=== PATIENT | female | born 1950 | race Caucasian/White ===

== ENCOUNTER → 2017-03-02 | Outpatient (CLI) | payer MEDICARE, OTHER ==
[2017-03-02 11:21] LABS: FREE T4 1.43 NG/DL (0.76-1.46)
== END ==
LOC: M LAB 09:48
PROVIDERS: ATTEND Family Medicine
DX: E03.9 Hypothyroidism, unspecified (principal); E11.9 Type 2 diabetes mellitus without complications; E78.2 Mixed hyperlipidemia

== ENCOUNTER → 2017-08-17 | Outpatient (REF) | payer MEDICARE, OTHER ==
[2017-08-17 11:30] LABS: ALBUMIN/GLOBULIN RATIO 1.48 (1.00-1.93); ALKALINE PHOSPHATASE 55 U/L (45-117); ALT/SGPT 20 U/L (12-78); ANION GAP 8 MEQ/L (8-16); AST/SGOT 10 U/L (15-37); BILIRUBIN,TOTAL 0.9 MG/DL (0.2-1.0); BLOOD UREA NITROGEN 20 MG/DL (7-18); CALCIUM LEVEL 9.3 MG/DL (8.8-10.2); CARBON DIOXIDE LEVEL 26 MEQ/L (21-32); CHLORIDE LEVEL 106 MEQ/L (98-107); CHOLESTEROL LEVEL 210 MG/DL (<200); CREATININE FOR GFR 0.73 MG/DL (0.55-1.02); GLOMERULAR FILTRATION RATE > 60.0 (>45); GLUCOSE, FASTING 113 MG/DL (80-110); POTASSIUM SERUM 4.5 MEQ/L (3.5-5.1); SODIUM LEVEL 140 MEQ/L (136-145); TOTAL PROTEIN 6.7 GM/DL (6.4-8.2); TRIGLYCERIDES LEVEL 92 MG/DL (<150)
== END ==
LOC: M SFHCPLAZ 07:51
PROVIDERS: ATTEND Family Medicine
DX: E78.2 Mixed hyperlipidemia (principal); E03.9 Hypothyroidism, unspecified; Z79.899 Other long term (current) drug therapy

== ENCOUNTER → 2018-02-07 | Outpatient (REF) | payer MEDICARE, OTHER ==
[2018-02-07 12:37] LABS: ALBUMIN 4.1 GM/DL (3.2-5.2); ALBUMIN/GLOBULIN RATIO 1.41 (1.00-1.93); ALKALINE PHOSPHATASE 58 U/L (45-117); ALT/SGPT 18 U/L (12-78); ANION GAP 9 MEQ/L (8-16); AST/SGOT 8 U/L (7-37); BLOOD UREA NITROGEN 16 MG/DL (7-18); CARBON DIOXIDE LEVEL 27 MEQ/L (21-32); CHLORIDE LEVEL 106 MEQ/L (98-107); CHOLESTEROL LEVEL 173 MG/DL (<200); CHOLESTEROL RISK RATIO 3.931 (<5); CREATININE FOR GFR 0.94 MG/DL (0.55-1.30); FREE T4 1.39 NG/DL (0.76-1.46); GLOMERULAR FILTRATION RATE > 60.0 (>39); GLUCOSE, FASTING 120 MG/DL (70-100); HDL CHOLESTEROL 44 MG/DL (>40); LDL CHOLESTEROL 99.8 MG/DL (<100); NON-HDL-C 129 MG/DL; POTASSIUM SERUM 4.2 MEQ/L (3.5-5.1); SODIUM LEVEL 142 MEQ/L (136-145); TRIGLYCERIDES LEVEL 146 MG/DL (<150)
[2018-02-07 12:38] LABS: TOTAL 25(OH) VITAMIN D 49.2 NG/ML (30.0-100.0)
[2018-02-07 12:39] LABS: PTH INTACT 57.1 PG/ML (18.5-88.0)
[2018-02-07 13:08] LABS: ESTIMATED AVERAGE GLUCOSE 140 MG/DL (60-110); HEMOGLOBIN A1c 6.5 %
[2018-02-08 14:15] LABS: INSULIN LEVEL 10.3 uIU/mL (2.6-24.9)
== END ==
LOC: M SFHCPLAZ 08:06
DX: E55.9 Vitamin D deficiency, unspecified (principal); E03.9 Hypothyroidism, unspecified; E78.2 Mixed hyperlipidemia; E11.8 Type 2 diabetes mellitus with unspecified complications
CPT/HCPCS: 83525

== ENCOUNTER → 2018-08-10 | Outpatient (REF) | payer MEDICARE, OTHER ==
[2018-08-10 12:49] LABS: APPEARANCE, URINE CLEAR (CLEAR); BACTERIA, URINE AUTO 1+ (NEGATIVE); BILIRUBIN, URINE AUTO NEGATIVE (NEGATIVE); BLOOD, URINE BLOOD NEGATIVE (NEGATIVE); COLOR, URINE STRAW (YELLOW); GLUCOSE, URINE (UA) AUTO NEGATIVE (NEGATIVE); KETONE, URINE AUTO NEGATIVE (NEGATIVE); LEUKOCYTE ESTERASE, URINE AUTO NEGATIVE (NEGATIVE); MUCUS, URINE SMALL (NEGATIVE); NITRITE, URINE AUTO NEGATIVE (NEGATIVE); PROTEIN, URINE AUTO NEGATIVE (NEGATIVE); RBC, URINE AUTO 2 /HPF (0-3); SPECIFIC GRAVITY URINE AUTO 1.008 (1.002-1.035); SQUAMOUS EPITHELIAL CELL UR AU 1 /HPF (0-6); UROBILINOGEN, URINE AUTO 0.2 mg/dL (0.0-2.0); WBC, URINE AUTO 1 /HPF (0-3)
[2018-08-10 14:49] LABS: ALBUMIN 4.2 GM/DL (3.2-5.2); ALKALINE PHOSPHATASE 58 U/L (45-117); ALT/SGPT 23 U/L (12-78); ANION GAP 10 MEQ/L (8-16); AST/SGOT 13 U/L (7-37); BILIRUBIN,TOTAL 0.8 MG/DL (0.2-1.0); BLOOD UREA NITROGEN 14 MG/DL (7-18); CARBON DIOXIDE LEVEL 25 MEQ/L (21-32); CHLORIDE LEVEL 106 MEQ/L (98-107); CREATININE FOR GFR 0.82 MG/DL (0.55-1.30); FREE T4 1.37 NG/DL (0.76-1.46); GLOMERULAR FILTRATION RATE > 60.0 (>39); GLUCOSE, FASTING 104 MG/DL (70-100); POTASSIUM SERUM 4.4 MEQ/L (3.5-5.1); SODIUM LEVEL 141 MEQ/L (136-145)
[2018-08-10 14:55] LABS: ESTIMATED AVERAGE GLUCOSE 128 MG/DL (60-110); HEMOGLOBIN A1c 6.1 %
[2018-08-10 15:26] LABS: CREATININE, URINE 31.2 MG/DL; MALB URINE SIEMENS 18.9 MG/L
[2018-08-10 15:30] LABS: MAU/CREAT RATIO 60.6 MCG/MG (0.0-30.0)
== END ==
LOC: M SFHCPLAZ 08:42
DX: E11.8 Type 2 diabetes mellitus with unspecified complications (principal); E03.9 Hypothyroidism, unspecified
CPT/HCPCS: 84443

== ENCOUNTER → 2019-01-24 | Outpatient (REF) | payer MEDICARE, OTHER ==
[2019-01-24 10:25] LABS: AMORPHOUS SEDIMENT SMALL (NEGATIVE); APPEARANCE, URINE CLEAR (CLEAR); BACTERIA, URINE AUTO NEGATIVE (NEGATIVE); BILIRUBIN, URINE AUTO NEGATIVE (NEGATIVE); BLOOD, URINE BLOOD NEGATIVE (NEGATIVE); COLOR, URINE YELLOW (YELLOW); GLUCOSE, URINE (UA) AUTO NEGATIVE (NEGATIVE); KETONE, URINE AUTO NEGATIVE (NEGATIVE); LEUKOCYTE ESTERASE, URINE AUTO NEGATIVE (NEGATIVE); MUCUS, URINE SMALL (NEGATIVE); NITRITE, URINE AUTO NEGATIVE (NEGATIVE); PROTEIN, URINE AUTO NEGATIVE (NEGATIVE); RBC, URINE AUTO 0 /HPF (0-3); SPECIFIC GRAVITY URINE AUTO 1.012 (1.002-1.035); SQUAMOUS EPITHELIAL CELL UR AU 1 /HPF (0-6); UROBILINOGEN, URINE AUTO 0.2 mg/dL (0.0-2.0); WBC, URINE AUTO 1 /HPF (0-3)
[2019-01-24 10:49] LABS: HEMOGLOBIN A1c 6.8 %
[2019-01-24 10:53] LABS: ALT/SGPT 23 U/L (12-78); BILIRUBIN,TOTAL 0.9 MG/DL (0.2-1.0); BLOOD UREA NITROGEN 14 MG/DL (7-18); C REACTIVE PROTEIN QUANTITATIV < 0.30 MG/DL (0.00-0.30); CALCIUM LEVEL 8.8 MG/DL (8.8-10.2); CARBON DIOXIDE LEVEL 27 MEQ/L (21-32); CHLORIDE LEVEL 105 MEQ/L (98-107); CHOLESTEROL LEVEL 173 MG/DL (<200); CHOLESTEROL RISK RATIO 4.023 (<5); CPK CREATINE PHOSPHOKINASE 105 U/L (26-192); GLOMERULAR FILTRATION RATE > 60.0 (>39); GLUCOSE, FASTING 137 MG/DL (70-100); HDL CHOLESTEROL 43 MG/DL (>40); LDL CHOLESTEROL 99 MG/DL (<100); NON-HDL-C 130 MG/DL; POTASSIUM SERUM 4.5 MEQ/L (3.5-5.1); SODIUM LEVEL 141 MEQ/L (136-145); TOTAL PROTEIN 6.6 GM/DL (6.4-8.2); TRIGLYCERIDES LEVEL 155 MG/DL (<150)
[2019-01-24 10:59] LABS: PTH INTACT 70.8 PG/ML (18.5-88.0); TOTAL 25(OH) VITAMIN D 33.6 NG/ML (30.0-100.0)
[2019-01-24 11:07] LABS: CREATININE, URINE 74.8 MG/DL; MALB URINE SIEMENS 13.1 MG/L; MAU/CREAT RATIO 17.5 MCG/MG (0.0-30.0)
== END ==
LOC: M SFHCPLAZ 08:10
PROVIDERS: ATTEND Family Medicine
DX: E78.2 Mixed hyperlipidemia (principal); E11.8 Type 2 diabetes mellitus with unspecified complications; E55.9 Vitamin D deficiency, unspecified

== ENCOUNTER → 2019-07-06 | Outpatient (REF) | payer MEDICARE, OTHER ==
[2019-07-06 10:10] LABS: ALBUMIN 3.8 GM/DL (3.2-5.2); ALT/SGPT 23 U/L (12-78); BILIRUBIN,TOTAL 1.1 MG/DL (0.2-1.0); BLOOD UREA NITROGEN 17 MG/DL (7-18); CALCIUM LEVEL 8.9 MG/DL (8.8-10.2); CARBON DIOXIDE LEVEL 28 MEQ/L (21-32); CHLORIDE LEVEL 108 MEQ/L (98-107); CREATININE FOR GFR 0.88 MG/DL (0.55-1.30); FREE T4 1.44 NG/DL (0.76-1.46); GLOMERULAR FILTRATION RATE > 60.0 (>39); GLUCOSE, FASTING 121 MG/DL (70-100); POTASSIUM SERUM 4.5 MEQ/L (3.5-5.1); SODIUM LEVEL 142 MEQ/L (136-145); THYROID STIMULATING HORMONE 0.993 uIU/ML (0.358-3.740); TOTAL PROTEIN 6.4 GM/DL (6.4-8.2)
[2019-07-06 10:11] LABS: TOTAL 25(OH) VITAMIN D 31.4 NG/ML (30.0-100.0)
[2019-07-06 10:12] LABS: HEMOGLOBIN A1c 7.3 %; PTH INTACT 65.8 PG/ML (18.5-88.0)
== END ==
LOC: M SFHCPLAZ 08:01
PROVIDERS: ATTEND Family Medicine
DX: E03.9 Hypothyroidism, unspecified (principal); E11.8 Type 2 diabetes mellitus with unspecified complications; E55.9 Vitamin D deficiency, unspecified

== ENCOUNTER → 2020-01-16 | Outpatient (CLI) | payer MEDICARE, OTHER ==
[2020-01-16 12:24] LABS: BASO # 0.1 10^3/uL (0.0-0.2); BASO % 0.9 % (0.0-1.0); EOS # 0.2 10^3/uL (0.0-0.5); HEMATOCRIT 40.1 % (36.0-47.0); HEMOGLOBIN 13.2 g/dl (12.0-15.5); LYMPH # 1.5 10^3/uL (1.5-5.0); LYMPH % 24.1 % (24.0-44.0); MEAN CORPUSCULAR HEMOGLOBIN 30.3 pg (27.0-33.0); MEAN CORPUSCULAR HGB CONC 32.9 g/dl (32.0-36.5); MONO # 0.5 10^3/uL (0.0-0.8); MONO % 7.4 % (0.0-5.0); NEUTROPHILS # 4.1 10^3/uL (1.5-8.5); NEUTROPHILS % 64.3 % (36.0-66.0); PLATELET COUNT, AUTOMATED 210 10^3/uL (150-450); RED BLOOD COUNT 4.36 10^6/uL (4.00-5.40); WHITE BLOOD COUNT 6.4 10^3/uL (4.0-10.0)
[2020-01-16 12:30] LABS: APPEARANCE, URINE HAZY (CLEAR); BACTERIA, URINE AUTO NEGATIVE (NEGATIVE); BILIRUBIN, URINE AUTO NEGATIVE (NEGATIVE); BLOOD, URINE BLOOD NEGATIVE (NEGATIVE); COLOR, URINE YELLOW (YELLOW); GLUCOSE, URINE (UA) AUTO NEGATIVE (NEGATIVE); KETONE, URINE AUTO NEGATIVE (NEGATIVE); LEUKOCYTE ESTERASE, URINE AUTO NEGATIVE (NEGATIVE); NITRITE, URINE AUTO NEGATIVE (NEGATIVE); PROTEIN, URINE AUTO NEGATIVE (NEGATIVE); RBC, URINE AUTO 2 /HPF (0-3); SPECIFIC GRAVITY URINE AUTO 1.017 (1.002-1.035); SQUAMOUS EPITHELIAL CELL UR AU 0 /HPF (0-6); UROBILINOGEN, URINE AUTO 0.2 mg/dL (0.0-2.0); WBC, URINE AUTO 1 /HPF (0-3)
[2020-01-16 12:49] LABS: ALBUMIN 4.1 GM/DL (3.2-5.2); ALT/SGPT 19 U/L (12-78); BILIRUBIN,TOTAL 1.4 MG/DL (0.2-1.0); BLOOD UREA NITROGEN 18 MG/DL (7-18); CALCIUM LEVEL 8.9 MG/DL (8.8-10.2); CARBON DIOXIDE LEVEL 25 MEQ/L (21-32); CHLORIDE LEVEL 108 MEQ/L (98-107); CHOLESTEROL LEVEL 208 MG/DL (<200); CHOLESTEROL RISK RATIO 5.333 (<5); CREATININE FOR GFR 0.91 MG/DL (0.55-1.30); GLOMERULAR FILTRATION RATE > 60.0 (>39); GLUCOSE, FASTING 124 MG/DL (70-100); HDL CHOLESTEROL 39 MG/DL (>40); LDL CHOLESTEROL 139 MG/DL (<100); NON-HDL-C 169 MG/DL; POTASSIUM SERUM 4.2 MEQ/L (3.5-5.1); SODIUM LEVEL 140 MEQ/L (136-145); TRIGLYCERIDES LEVEL 152 MG/DL (<150)
[2020-01-16 12:55] LABS: MALB URINE SIEMENS 24.5 MG/L; MAU/CREAT RATIO 19.1 MCG/MG (0.0-30.0)
== END ==
LOC: M PLALAB 08:36
PROVIDERS: ATTEND Family Medicine
DX: E78.2 Mixed hyperlipidemia (principal); E11.8 Type 2 diabetes mellitus with unspecified complications

== ENCOUNTER → 2020-01-21 | Outpatient (CLI) | payer MEDICARE, OTHER ==
--- NOTE | 2020-01-21 10:12 | REPPI ---
RIGHT ANKLE, TWO VIEWS: Two views of the right ankle are performed. There is no fracture or dislocation. The ankle mortise is anatomic. There is mild inferior calcaneal spurring. There are calcifications in the soft tissues of the distal lower leg probably representing phleboliths. IMPRESSION: Mild inferior calcaneal spurring. Electronically Signed by Iván Mckeon MD 01/21/2020 01:24 P
--- NOTE | 2020-01-21 10:15 | REPPI ---
RIGHT LOWER LEG: AP and lateral views of the right lower leg performed. No fracture or dislocation is seen. There appear to be scattered phleboliths in the soft tissues of the lower leg. There are mild degenerative changes of the knee joint with mild diffuse joint space narrowing and subchondral sclerosis and spurring. IMPRESSION: Mild degenerative changes at the knee. No other significant finding. Electronically Signed by Iván Mckeon MD 01/21/2020 01:24 P
--- NOTE | 2020-01-21 10:17 | REPPI ---
RIGHT FOOT, TWO VIEWS: AP and lateral views of the right foot performed and demonstrate no fracture or dislocation. There is mild inferior calcaneal spurring. There is fairly severe joint space narrowing at the 1st metatarsophalangeal joint. There is moderate subchondral sclerosis with mild spurring at the joint as well. There is mild hallux valgus deformity. IMPRESSION: Degenerative joint disease 1st metatarsophalangeal joint. Mild inferior calcaneal spurring. Electronically Signed by Iván Mckeon MD 01/21/2020 01:24 P
== END ==
LOC: M PLAIMG 09:20
PROVIDERS: ATTEND Family Medicine
DX: M77.31 Calcaneal spur, right foot (principal); M19.071 Primary osteoarthritis, right ankle and foot; M17.11 Unilateral primary osteoarthritis, right knee; I87.2 Venous insufficiency (chronic) (peripheral)
CPT/HCPCS: 73590; 73600; 73620; G0463

== ENCOUNTER → 2020-01-29 | Outpatient (CLI) | payer MEDICARE, OTHER ==
--- NOTE | 2020-01-29 12:21 | REP ---
Bilateral lower extremity deep vein duplex ultrasound: The deep veins demonstrate normal compression, normal Doppler color flow and normal Doppler waveforms with respiration augmentation from the popliteal veins to the common femoral veins bilaterally. Impression: There is no deep vein thrombus in the right or left lower extremities. Lower Extremity Venous Reflux: Positive reflux is greater than 0.5 seconds. Right Reflux Left Reflux CFV Reflux no no Ant. Acc. GSV Present yes no Reflux no no Greater saph/fem junction 8.7 mm no 5.3 mm no Greater saph vein mid thigh 5.9 mm no 4.2 mm no Greater saph vein at knee 2.3 mm no 1.6 mm no SFV PROX no no SFV MID no no SFV DISTAL yes no POPLITEAL VEIN no no LSV 3.5 mm no 3.8 mm no The the patient was unable to continue standing. The patient was having difficulty standing and one spot. There is no reflux except in the right distal SFV. Additionally, on the left a posterior accessory GSV was identified. There was no reflux. Electronically Signed by Iván Cavazos MD 01/29/2020 12:12 P
== END ==
LOC: M RAD 10:10
PROVIDERS: ATTEND Family Medicine
DX: I87.2 Venous insufficiency (chronic) (peripheral) (principal); Q27.9 Congenital malformation of peripheral vascular system, unspecified

== ENCOUNTER → 2020-08-29 | Outpatient (REF) | payer MEDICARE, OTHER ==
[2020-08-29 10:55] LABS: ALBUMIN 3.8 GM/DL (3.2-5.2); ALT/SGPT 20 U/L (12-78); BILIRUBIN,TOTAL 1.2 MG/DL (0.2-1.0); BLOOD UREA NITROGEN 18 MG/DL (7-18); CALCIUM LEVEL 8.8 MG/DL (8.8-10.2); CARBON DIOXIDE LEVEL 27 MEQ/L (21-32); CHLORIDE LEVEL 105 MEQ/L (98-107); CHOLESTEROL LEVEL 170 MG/DL (<200); CPK CREATINE PHOSPHOKINASE 95 U/L (26-192); CREATININE FOR GFR 0.84 MG/DL (0.55-1.30); FREE T4 1.47 NG/DL (0.76-1.46); GLOMERULAR FILTRATION RATE > 60.0 (>39); GLUCOSE, FASTING 122 MG/DL (70-100); HDL CHOLESTEROL 50 MG/DL (>40); LDL CHOLESTEROL 90 MG/DL (<100); NON-HDL-C 120 MG/DL; POTASSIUM SERUM 4.7 MEQ/L (3.5-5.1); SODIUM LEVEL 140 MEQ/L (136-145); TOTAL PROTEIN 6.9 GM/DL (6.4-8.2); TRIGLYCERIDES LEVEL 152 MG/DL (<150)
[2020-08-29 10:58] LABS: HEMOGLOBIN A1c 6.2 %; PTH INTACT 56.9 PG/ML (18.5-88.0); TOTAL 25(OH) VITAMIN D 50.4 NG/ML (30.0-100.0)
== END ==
LOC: M PLALAB 08:10
PROVIDERS: ATTEND Family Medicine
DX: E78.2 Mixed hyperlipidemia (principal); I10 Essential (primary) hypertension; E03.9 Hypothyroidism, unspecified; E11.8 Type 2 diabetes mellitus with unspecified complications; E55.9 Vitamin D deficiency, unspecified; Z79.899 Other long term (current) drug therapy

== ENCOUNTER → 2021-02-06 | Outpatient (REF) | payer MEDICARE, OTHER ==
[2021-02-06 10:17] LABS: APPEARANCE, URINE CLEAR (CLEAR); BACTERIA, URINE AUTO 1+ (NEGATIVE); BILIRUBIN, URINE AUTO NEGATIVE (NEGATIVE); BLOOD, URINE BLOOD 1+ (NEGATIVE); COLOR, URINE YELLOW (YELLOW); GLUCOSE, URINE (UA) AUTO NEGATIVE (NEGATIVE); KETONE, URINE AUTO NEGATIVE (NEGATIVE); LEUKOCYTE ESTERASE, URINE AUTO NEGATIVE (NEGATIVE); MUCUS, URINE SMALL (NEGATIVE); NITRITE, URINE AUTO NEGATIVE (NEGATIVE); PROTEIN, URINE AUTO NEGATIVE (NEGATIVE); RBC, URINE AUTO 0 /HPF (0-3); SPECIFIC GRAVITY URINE AUTO 1.013 (1.002-1.035); SQUAMOUS EPITHELIAL CELL UR AU 0 /HPF (0-6); UROBILINOGEN, URINE AUTO 0.2 mg/dL (0.0-2.0); WBC, URINE AUTO 2 /HPF (0-3)
[2021-02-06 10:33] LABS: HEMOGLOBIN A1c 6.5 %
[2021-02-06 10:47] LABS: ALBUMIN 4.2 GM/DL (3.2-5.2); ALT/SGPT 22 U/L (12-78); BILIRUBIN,TOTAL 1.3 MG/DL (0.2-1.0); BLOOD UREA NITROGEN 17 MG/DL (7-18); CALCIUM LEVEL 9.6 MG/DL (8.8-10.2); CARBON DIOXIDE LEVEL 28 MEQ/L (21-32); CHLORIDE LEVEL 106 MEQ/L (98-107); CREATININE FOR GFR 0.92 MG/DL (0.55-1.30); FREE T4 1.34 NG/DL (0.76-1.46); GLOMERULAR FILTRATION RATE > 60.0 (>39); GLUCOSE, FASTING 130 MG/DL (70-100); POTASSIUM SERUM 4.5 MEQ/L (3.5-5.1); SODIUM LEVEL 140 MEQ/L (136-145); TOTAL PROTEIN 7.1 GM/DL (6.4-8.2)
[2021-02-06 10:54] LABS: CREATININE, URINE 86.6 MG/DL; MAU/CREAT RATIO 9.2 MCG/MG (0.0-30.0)
== END ==
LOC: M PLALAB 08:46
PROVIDERS: ATTEND Family Medicine
DX: E11.8 Type 2 diabetes mellitus with unspecified complications (principal); E03.9 Hypothyroidism, unspecified

== ENCOUNTER → 2021-08-03 | Outpatient (CLI) | payer MEDICARE, OTHER ==
[2021-08-03 10:59] LABS: BASO # 0.1 10^3/uL (0.0-0.2); BASO % 1.3 % (0.0-1.0); EOS # 0.5 10^3/uL (0.0-0.5); HEMATOCRIT 40.7 % (36.0-47.0); HEMOGLOBIN 13.2 g/dl (12.0-15.5); LYMPH # 1.2 10^3/uL (1.5-5.0); LYMPH % 19.2 % (24.0-44.0); MEAN CORPUSCULAR HEMOGLOBIN 29.4 pg (27.0-33.0); MEAN CORPUSCULAR HGB CONC 32.4 g/dl (32.0-36.5); MEAN CORPUSCULAR VOLUME 90.6 fl (80.0-96.0); MONO # 0.4 10^3/uL (0.0-0.8); MONO % 7.3 % (2.0-8.0); NEUTROPHILS # 3.8 10^3/uL (1.5-8.5); NEUTROPHILS % 62.9 % (36.0-66.0); PLATELET COUNT, AUTOMATED 192 10^3/uL (150-450); RED BLOOD COUNT 4.49 10^6/uL (4.00-5.40)
[2021-08-03 12:02] LABS: ALBUMIN 3.8 GM/DL (3.2-5.2); BILIRUBIN,TOTAL 1.2 MG/DL (0.2-1.0); CALCIUM LEVEL 9.2 MG/DL (8.8-10.2); CHOLESTEROL RISK RATIO 3.12 (<5); CREATININE FOR GFR 1.02 MG/DL (0.55-1.30); FREE T4 1.47 NG/DL (0.76-1.46); GLOMERULAR FILTRATION RATE 56.6 (>39); POTASSIUM SERUM 4.5 MEQ/L (3.5-5.1); THYROID STIMULATING HORMONE 0.792 uIU/ML (0.358-3.740); TOTAL PROTEIN 6.9 GM/DL (6.4-8.2)
[2021-08-03 18:59] LABS: HEMOGLOBIN A1c 6.4 %
== END ==
LOC: M PLALAB 08:10
PROVIDERS: ATTEND Family Medicine
DX: E03.9 Hypothyroidism, unspecified (principal); E11.8 Type 2 diabetes mellitus with unspecified complications; E78.2 Mixed hyperlipidemia; I10 Essential (primary) hypertension

== ENCOUNTER → 2022-01-01 | Outpatient (CLI) | payer MEDICARE, OTHER ==
[2022-01-01 10:44] LABS: BASO # 0.1 10^3/uL (0.0-0.2); BASO % 0.7 % (0.0-1.0); EOS # 0.3 10^3/uL (0.0-0.5); HEMATOCRIT 41.1 % (36.0-47.0); HEMOGLOBIN 13.5 g/dl (12.0-15.5); LYMPH # 1.7 10^3/uL (1.5-5.0); LYMPH % 24.4 % (24.0-44.0); MEAN CORPUSCULAR HEMOGLOBIN 29.8 pg (27.0-33.0); MEAN CORPUSCULAR HGB CONC 32.8 g/dl (32.0-36.5); MEAN CORPUSCULAR VOLUME 90.7 fl (80.0-96.0); MONO # 0.5 10^3/uL (0.0-0.8); MONO % 7.5 % (2.0-8.0); NEUTROPHILS # 4.4 10^3/uL (1.5-8.5); NEUTROPHILS % 63.1 % (36.0-66.0); PLATELET COUNT, AUTOMATED 179 10^3/uL (150-450); RED BLOOD COUNT 4.53 10^6/uL (4.00-5.40); WHITE BLOOD COUNT 6.9 10^3/uL (4.0-10.0)
[2022-01-01 11:38] LABS: ALBUMIN 4.2 GM/DL (3.2-5.2); BILIRUBIN,TOTAL 1.2 MG/DL (0.2-1.0); CALCIUM LEVEL 9.5 MG/DL (8.8-10.2); CREATININE FOR GFR 0.97 MG/DL (0.55-1.30); FREE T4 1.56 NG/DL (0.76-1.46); GLOMERULAR FILTRATION RATE 59.9 (>39); POTASSIUM SERUM 4.7 MEQ/L (3.5-5.1); PTH INTACT 48.3 PG/ML (18.5-88.0); THYROID STIMULATING HORMONE 1.13 uIU/ML (0.358-3.740); TOTAL 25(OH) VITAMIN D 70.6 NG/ML (30.0-100.0)
[2022-01-01 12:18] LABS: HEMOGLOBIN A1c 6.5 %
== END ==
LOC: M PLALAB 07:50
PROVIDERS: ATTEND Family Medicine
DX: E55.9 Vitamin D deficiency, unspecified (principal); E11.8 Type 2 diabetes mellitus with unspecified complications; I10 Essential (primary) hypertension

== ENCOUNTER → 2022-06-04 | Outpatient (CLI) | payer MEDICARE, OTHER ==
[2022-06-04 10:37] LABS: ALBUMIN 4.1 GM/DL (3.2-5.2); ALT/SGPT 24 U/L (12-78); BILIRUBIN,TOTAL 1.5 MG/DL (0.2-1.0); BLOOD UREA NITROGEN 17 MG/DL (7-18); C REACTIVE PROTEIN QUANTITATIV 0.37 MG/DL (0.00-0.30); CALCIUM LEVEL 9.4 MG/DL (8.8-10.2); CARBON DIOXIDE LEVEL 28 MEQ/L (21-32); CHLORIDE LEVEL 107 MEQ/L (98-107); CHOLESTEROL LEVEL 154 MG/DL (<200); CHOLESTEROL RISK RATIO 2.961 (<5); CREATININE FOR GFR 0.96 MG/DL (0.55-1.30); FREE T4 1.53 NG/DL (0.76-1.46); GLOMERULAR FILTRATION RATE > 60.0 (>39); GLUCOSE, FASTING 146 MG/DL (70-100); HDL CHOLESTEROL 52 MG/DL (>40); LDL CHOLESTEROL 84 MG/DL (<100); NON-HDL-C 102 MG/DL; POTASSIUM SERUM 4.4 MEQ/L (3.5-5.1); SODIUM LEVEL 139 MEQ/L (136-145); TOTAL PROTEIN 6.8 GM/DL (6.4-8.2); TRIGLYCERIDES LEVEL 90 MG/DL (<150)
[2022-06-04 10:44] LABS: HEMOGLOBIN A1c 6.6 %
[2022-06-04 11:17] LABS: CREATININE, URINE 97.3 MG/DL; MALB URINE SIEMENS 18.3 MG/L; MAU/CREAT RATIO 18.8 MCG/MG (0.0-30.0)
== END ==
LOC: M PLALAB 07:31
PROVIDERS: ATTEND Family Medicine
DX: E11.8 Type 2 diabetes mellitus with unspecified complications (principal); E03.9 Hypothyroidism, unspecified; E78.2 Mixed hyperlipidemia

== ENCOUNTER → 2023-01-27 | Outpatient (CLI) | payer MEDICARE, OTHER ==
[2023-01-27 14:02] LABS: BASO # 0.1 10^3/uL (0.0-0.2); EOS # 0.3 10^3/uL (0.0-0.5); EOS % 4.7 % (0.0-3.0); HEMATOCRIT 40.9 % (36.0-47.0); HEMOGLOBIN 13.6 g/dl (12.0-15.5); LYMPH # 1.5 10^3/uL (1.5-5.0); LYMPH % 25.2 % (24.0-44.0); MEAN CORPUSCULAR HEMOGLOBIN 30.4 pg (27.0-33.0); MEAN CORPUSCULAR HGB CONC 33.3 g/dl (32.0-36.5); MEAN CORPUSCULAR VOLUME 91.3 fl (80.0-96.0); MONO # 0.5 10^3/uL (0.0-0.8); MONO % 8.8 % (2.0-8.0); NEUTROPHILS # 3.5 10^3/uL (1.5-8.5); PLATELET COUNT, AUTOMATED 199 10^3/uL (150-450); RED BLOOD COUNT 4.48 10^6/uL (4.00-5.40); WHITE BLOOD COUNT 5.8 10^3/uL (4.0-10.0)
[2023-01-27 14:17] LABS: HEMOGLOBIN A1c 6.5 % (4.0-6.0)
[2023-01-27 14:33] LABS: ALBUMIN 4.2 G/DL (3.2-5.2); ALKALINE PHOSPHATASE 51 U/L (46-116); ALT/SGPT 15 U/L (7.0-40); AST/SGOT 16 U/L (<34); BILIRUBIN,TOTAL 1.9 MG/DL (0.3-1.2); BLOOD UREA NITROGEN 16 MG/DL (9-23); CALCIUM LEVEL 9.6 MG/DL (8.3-10.6); CARBON DIOXIDE LEVEL 26 MMOL/L (20-31); CHLORIDE LEVEL 105 MMOL/L (98-107); CREATININE FOR GFR 0.88 MG/DL (0.55-1.30); GLOMERULAR FILTRATION RATE > 60.0 (>39); GLUCOSE, FASTING 128 MG/DL (74-106); POTASSIUM SERUM 4.6 MMOL/L (3.5-5.1); PTH INTACT 43.8 PG/ML (18.5-88.0); SODIUM LEVEL 140 MMOL/L (136-145); TOTAL PROTEIN 6.8 G/DL (5.7-8.2)
== END ==
LOC: M PLALAB 09:37
PROVIDERS: ATTEND Family Medicine
DX: E11.8 Type 2 diabetes mellitus with unspecified complications (principal); I10 Essential (primary) hypertension; E55.9 Vitamin D deficiency, unspecified

== ENCOUNTER → 2023-01-28 | Outpatient (CLI) | payer MEDICARE, OTHER | LOC: M WUC 12:11 | DX: S63.502A Unspecified sprain of left wrist, initial encounter (principal); S63.8X2A Sprain of other part of left wrist and hand, initial encounter; M19.042 Primary osteoarthritis, left hand; X58.XXXA Exposure to other specified factors, initial encounter; Y92.9 Unspecified place or not applicable; Y93.9 Activity, unspecified; Y99.9 Unspecified external cause status ==

== ENCOUNTER → 2023-02-21 | Outpatient (CLI) | payer MEDICARE, OTHER ==
[2023-02-21 13:54] LABS: INR 0.9; PROTHROMBIN TIME 12.3 SECONDS (12.5-14.5)
[2023-02-21 13:55] LABS: PARTIAL THROMBOPLASTIN TIME 27.4 SECONDS (24.8-34.2)
[2023-02-21 14:14] LABS: ALBUMIN 4.2 G/DL (3.2-5.2); BILIRUBIN,DIRECT 0.4 MG/DL (<0.4); BILIRUBIN,TOTAL 1.6 MG/DL (0.3-1.2); CHOLESTEROL RISK RATIO 3.93 (<5); HDL CHOLESTEROL 45.7 MG/DL (>40); NON-HDL-C 134.3 MG/DL
[2023-02-21 18:57] LABS: LDL CHOLESTEROL 101.9 MG/DL (<100); TOTAL PROTEIN 6.9 G/DL (5.7-8.2)
[2023-02-21 19:00] LABS: FREE T4 1.71 NG/DL (0.89-1.76); THYROID STIMULATING HORMONE 3.256 uIU/ML (0.55-4.78)
== END ==
LOC: M PLALAB 10:47
PROVIDERS: ATTEND Family Medicine
DX: E03.9 Hypothyroidism, unspecified (principal); E80.4 Gilbert syndrome; E78.2 Mixed hyperlipidemia

== ENCOUNTER → 2023-03-15 | Outpatient (CLI) | payer MEDICARE, OTHER | LOC: M RAD 07:30 | PROVIDERS: ATTEND Family Medicine | DX: E80.4 Gilbert syndrome (principal); D18.03 Hemangioma of intra-abdominal structures ==

== ENCOUNTER → 2023-07-11 | Outpatient (REF) | payer MEDICARE, OTHER | LOC: M SFHCPLAZ 13:47 | PROVIDERS: ATTEND Family Medicine | DX: E11.8 Type 2 diabetes mellitus with unspecified complications (principal); E55.9 Vitamin D deficiency, unspecified; E03.9 Hypothyroidism, unspecified; E78.2 Mixed hyperlipidemia; I10 Essential (primary) hypertension ==

== ENCOUNTER → 2023-12-06 | Outpatient (CLI) | payer MEDICARE, OTHER ==
[~2023-12-06] MED LIST: BIMA01SOL OU; COMB0.2S OU; JANU100T PO; LEVO100T5 PO; LORA-1041 PO; SIMV40TA20 PO
[2023-12-06 15:16] LABS: BASO % 0.5 % (0.0-1.0); EOS # 0.3 10^3/uL (0.0-0.5); EOS % 4.1 % (0.0-3.0); HEMATOCRIT 42.1 % (36.0-47.0); HEMOGLOBIN 13.7 g/dl (12.0-15.5); LYMPH # 1.5 10^3/uL (1.5-5.0); LYMPH % 25.2 % (24.0-44.0); MEAN CORPUSCULAR HEMOGLOBIN 29.9 pg (27.0-33.0); MEAN CORPUSCULAR HGB CONC 32.5 g/dl (32.0-36.5); MEAN CORPUSCULAR VOLUME 91.9 fl (80.0-96.0); MONO # 0.5 10^3/uL (0.0-0.8); MONO % 8.5 % (2.0-8.0); NEUTROPHILS # 3.7 10^3/uL (1.5-8.5); NEUTROPHILS % 61.5 % (36.0-66.0); PLATELET COUNT, AUTOMATED 210 10^3/uL (150-450); RED BLOOD COUNT 4.58 10^6/uL (4.00-5.40)
[2023-12-06 15:24] LABS: CPK CREATINE PHOSPHOKINASE 72 U/L (34-145)
[2023-12-06 15:25] LABS: ALBUMIN 4.1 G/DL (3.2-5.2); ALKALINE PHOSPHATASE 61 U/L (46-116); ALT/SGPT 15 U/L (7.0-40); AST/SGOT 9 U/L (<34); BILIRUBIN,TOTAL 1.6 MG/DL (0.3-1.2); BLOOD UREA NITROGEN 14 MG/DL (9-23); CALCIUM LEVEL 9.2 MG/DL (8.3-10.6); CARBON DIOXIDE LEVEL 28 MMOL/L (20-31); CHLORIDE LEVEL 106 MMOL/L (98-107); CREATININE FOR GFR 0.87 MG/DL (0.55-1.30); FERRITIN 58.2 NG/ML (7.3-270.7); GLOMERULAR FILTRATION RATE > 60.0 (>39); GLUCOSE, FASTING 128 MG/DL (74-106); POTASSIUM SERUM 4.6 MMOL/L (3.5-5.1); SODIUM LEVEL 139 MMOL/L (136-145); THYROID STIMULATING HORMONE 3.094 uIU/ML (0.55-4.78); TOTAL 25(OH) VITAMIN D 52.6 NG/ML (20.0-100.0); TOTAL PROTEIN 6.6 G/DL (5.7-8.2)
[2023-12-06 15:26] LABS: FREE T4 1.58 NG/DL (0.89-1.76)
== END ==
LOC: M PLALAB 09:01
PROVIDERS: ATTEND Family Medicine
DX: E55.9 Vitamin D deficiency, unspecified (principal); E03.9 Hypothyroidism, unspecified; E78.2 Mixed hyperlipidemia; I10 Essential (primary) hypertension; E80.4 Gilbert syndrome; E11.8 Type 2 diabetes mellitus with unspecified complications; J30.9 Allergic rhinitis, unspecified; I87.2 Venous insufficiency (chronic) (peripheral); G56.00 Carpal tunnel syndrome, unspecified upper limb; H40.9 Unspecified glaucoma

== ENCOUNTER 2023-12-13 09:45 | Day surgery (SDC) | payer MEDICARE, OTHER ==
[~2023-12-13] VITALS: Ht 172.7 cm; Wt 89.4 kg
[~2023-12-13 09:45] MED LIST changes: +CYCLOPENTOLATE 1% OPHTH SOLN 2ML BTL OD SCH; +LIDOCAINE 1% SDV 5ML VIAL As Ordered ONE; +MOXIFLOXACIN 0.6MG/0.4ML INTRAOCULAR SYRINGE As Ordered ONE; +PHENYLEPHRINE 2.5% OPHTH SOL 2ML OD SCH; +PROPARACAINE 0.5% OPHTH SOL 15ML OD ONE; +TROPICAMIDE 1% OPHTH SOLN 15ML OD SCH
[2023-12-13] MEDS ORDERED: BSS IRR 500ML/OMIDRIA 4ML IRR BAG (OR ONLY) As Ordered ONE (10:19)
[2023-12-13] MEDS ORDERED: MIDAZOLAM INJ 2MG/2ML VIAL As Ordered ONE (10:27)
[2023-12-13] MEDS ORDERED: TOBRADEX OPHTH OINT 3.5 GM As Ordered ONE (12:29)
[2023-12-13 13:30] VITALS: BP 192/85; TEMP 97.6; O2SAT 98
== END 2023-12-13 14:05 | disposition home or self-care (01) ==
LOC: M SDC 09:45
PROVIDERS: ATTEND Ophthalmology
DX: H25.11 Age-related nuclear cataract, right eye (principal); H40.1110 Primary open-angle glaucoma, right eye, stage unspecified; J32.9 Chronic sinusitis, unspecified; E78.2 Mixed hyperlipidemia; E03.9 Hypothyroidism, unspecified; E11.8 Type 2 diabetes mellitus with unspecified complications; J30.9 Allergic rhinitis, unspecified; I10 Essential (primary) hypertension; E55.9 Vitamin D deficiency, unspecified; E80.4 Gilbert syndrome; Z88.1 Allergy status to other antibiotic agents; Z88.8 Allergy status to other drugs, medicaments and biological substances; K74.00 Hepatic fibrosis, unspecified; I87.2 Venous insufficiency (chronic) (peripheral); Z79.899 Other long term (current) drug therapy
CPT/HCPCS: 65820; 66984; C1889; J1097; J2250; V2632

== ENCOUNTER → 2024-05-03 | Outpatient (CLI) | payer MEDICARE, OTHER ==
[~2024-05-03] MED LIST changes: -CYCLOPENTOLATE 1% OPHTH SOLN 2ML BTL OD SCH; -LIDOCAINE 1% SDV 5ML VIAL As Ordered ONE; -MOXIFLOXACIN 0.6MG/0.4ML INTRAOCULAR SYRINGE As Ordered ONE; -PHENYLEPHRINE 2.5% OPHTH SOL 2ML OD SCH; -PROPARACAINE 0.5% OPHTH SOL 15ML OD ONE; -TROPICAMIDE 1% OPHTH SOLN 15ML OD SCH
[2024-05-03 10:19] LABS: INR 0.97; PROTHROMBIN TIME 12.6 SECONDS (12.5-14.5)
[2024-05-03 10:20] LABS: HEMOGLOBIN A1c 6.6 % (4.0-6.0)
[2024-05-03 10:34] LABS: CREATININE, URINE 116.7 MG/DL
[2024-05-03 10:35] LABS: MAU/CREAT RATIO 26.5 MCG/MG (0.0-30.0)
[2024-05-03 10:36] LABS: BILIRUBIN,TOTAL 1.3 MG/DL (0.3-1.2); CALCIUM LEVEL 8.9 MG/DL (8.3-10.6); CHOLESTEROL RISK RATIO 4.36 (<5); CREATININE FOR GFR 1.06 MG/DL (0.55-1.30); GLOMERULAR FILTRATION RATE 53.7 (>39); HDL CHOLESTEROL 42.6 MG/DL (>40); NON-HDL-C 143.4 MG/DL; POTASSIUM SERUM 4.7 MMOL/L (3.5-5.1); TOTAL PROTEIN 6.4 G/DL (5.7-8.2)
[2024-05-03 10:38] LABS: FREE T4 1.26 NG/DL (0.89-1.76)
[2024-05-03 10:39] LABS: THYROID STIMULATING HORMONE 6.1 uIU/ML (0.55-4.78)
== END ==
LOC: M PLALAB 07:54
PROVIDERS: ATTEND Family Medicine
DX: K74.00 Hepatic fibrosis, unspecified (principal); E03.9 Hypothyroidism, unspecified; E78.2 Mixed hyperlipidemia; E11.8 Type 2 diabetes mellitus with unspecified complications

== ENCOUNTER → 2024-05-07 | Outpatient (REF) | payer MEDICARE, OTHER | LOC: M SFHCPLAZ 13:47 | PROVIDERS: ATTEND Family Medicine | DX: E11.8 Type 2 diabetes mellitus with unspecified complications (principal); E78.2 Mixed hyperlipidemia; E03.9 Hypothyroidism, unspecified; D50.9 Iron deficiency anemia, unspecified ==

== ENCOUNTER → 2024-05-17 | Outpatient (REF) | payer MEDICARE, OTHER | LOC: M SFHCPLAZ 10:04 | PROVIDERS: ATTEND Family Medicine | DX: Z53.9 Procedure and treatment not carried out, unspecified reason (principal) ==

== ENCOUNTER → 2024-09-18 | Outpatient (CLI) | payer MEDICARE, OTHER ==
[2024-09-18 11:23] LABS: BASO # 0.1 10^3/uL (0.0-0.2); BASO % 1.2 % (0.0-1.0); EOS # 0.2 10^3/uL (0.0-0.5); EOS % 3.6 % (0.0-3.0); HEMATOCRIT 39.4 % (36.0-47.0); HEMOGLOBIN 12.9 g/dl (12.0-15.5); LYMPH # 1.6 10^3/uL (1.5-5.0); LYMPH % 25.7 % (24.0-44.0); MEAN CORPUSCULAR HEMOGLOBIN 30.2 pg (27.0-33.0); MEAN CORPUSCULAR HGB CONC 32.7 g/dl (32.0-36.5); MEAN CORPUSCULAR VOLUME 92.3 fl (80.0-96.0); MONO # 0.6 10^3/uL (0.0-0.8); MONO % 9.1 % (2.0-8.0); NEUTROPHILS # 3.6 10^3/uL (1.5-8.5); NEUTROPHILS % 60.1 % (36.0-66.0); PLATELET COUNT, AUTOMATED 187 10^3/uL (150-450); RED BLOOD COUNT 4.27 10^6/uL (4.00-5.40)
[2024-09-18 11:46] LABS: ALBUMIN 4.1 G/DL (3.2-5.2); ALKALINE PHOSPHATASE 56 U/L (35-104); ALT/SGPT 12 U/L (7.0-40); AST/SGOT 9 U/L (<34); BLOOD UREA NITROGEN 19 MG/DL (9-23); CARBON DIOXIDE LEVEL 28 MMOL/L (20-31); CHLORIDE LEVEL 108 MMOL/L (98-107); CREATININE FOR GFR 0.88 MG/DL (0.55-1.30); GLOMERULAR FILTRATION RATE > 60.0 (>39); GLUCOSE, FASTING 130 MG/DL (74-106); POTASSIUM SERUM 4.6 MMOL/L (3.5-5.1); SODIUM LEVEL 140 MMOL/L (136-145); TOTAL PROTEIN 6.9 G/DL (5.7-8.2)
[2024-09-18 11:47] LABS: FREE T4 1.53 NG/DL (0.89-1.76)
[2024-09-18 11:48] LABS: FERRITIN 54.6 NG/ML (7.3-270.7); THYROID STIMULATING HORMONE 3.661 uIU/ML (0.55-4.78)
[2024-09-18 12:19] LABS: HEMOGLOBIN A1c 6.4 % (4.0-6.0)
== END ==
LOC: M PLALAB 08:00
PROVIDERS: ATTEND Family Medicine
DX: D50.9 Iron deficiency anemia, unspecified (principal); E11.8 Type 2 diabetes mellitus with unspecified complications; E03.9 Hypothyroidism, unspecified; E78.2 Mixed hyperlipidemia

== ENCOUNTER 2024-10-15 11:15 | Emergency (ER) | payer MEDICARE, OTHER ==
[~2024-10-15] VITALS: Ht 172.7 cm; Wt 86.9 kg
[2024-10-15] MEDS ORDERED: TELM1TAB35 (11:23)
[2024-10-15 12:14] LABS: BASO # 0.1 10^3/uL (0.0-0.2); BASO % 0.9 % (0.0-1.0); EOS # 0.2 10^3/uL (0.0-0.5); HEMATOCRIT 39.1 % (36.0-47.0); HEMOGLOBIN 13.2 g/dl (12.0-15.5); LYMPH # 1.5 10^3/uL (1.5-5.0); LYMPH % 22.5 % (24.0-44.0); MEAN CORPUSCULAR HEMOGLOBIN 30.5 pg (27.0-33.0); MEAN CORPUSCULAR HGB CONC 33.8 g/dl (32.0-36.5); MEAN CORPUSCULAR VOLUME 90.3 fl (80.0-96.0); MONO # 0.5 10^3/uL (0.0-0.8); MONO % 7.6 % (2.0-8.0); NEUTROPHILS # 4.3 10^3/uL (1.5-8.5); NEUTROPHILS % 65.7 % (36.0-66.0); PLATELET COUNT, AUTOMATED 189 10^3/uL (150-450); RED BLOOD COUNT 4.33 10^6/uL (4.00-5.40); WHITE BLOOD COUNT 6.6 10^3/uL (4.0-10.0)
[2024-10-15 12:34] LABS: LIPASE 35 U/L (12-53)
[2024-10-15 12:36] LABS: ALBUMIN 4.1 G/DL (3.2-5.2); ALKALINE PHOSPHATASE 64 U/L (35-104); ALT/SGPT 12 U/L (7.0-40); AST/SGOT 9 U/L (<34); BILIRUBIN,DIRECT 0.4 MG/DL (<0.4); BILIRUBIN,TOTAL 1.6 MG/DL (0.3-1.2); BLOOD UREA NITROGEN 25 MG/DL (9-23); CALCIUM LEVEL 9.6 MG/DL (8.3-10.6); CARBON DIOXIDE LEVEL 27 MMOL/L (20-31); CHLORIDE LEVEL 104 MMOL/L (98-107); CREATININE FOR GFR 0.98 MG/DL (0.55-1.30); GLOMERULAR FILTRATION RATE 58.7 (>39); GLUCOSE, FASTING 154 MG/DL (74-106); POTASSIUM SERUM 4.4 MMOL/L (3.5-5.1); SODIUM LEVEL 138 MMOL/L (136-145); TOTAL PROTEIN 7.2 G/DL (5.7-8.2)
[2024-10-15 13:54] LABS: CK-MB VALUE MASS < 1.0 NG/ML (<3.6)
[2024-10-15 13:59] LABS: CPK CREATINE PHOSPHOKINASE 93 U/L (34-145); MB/CK RELATIVE INDEX 1.07 (< OR =4)
[2024-10-15 14:30] LABS: CK-MB VALUE MASS < 1.0 NG/ML (<3.6)
[2024-10-15 14:31] LABS: CPK CREATINE PHOSPHOKINASE 84 U/L (34-145); MB/CK RELATIVE INDEX 1.19 (< OR =4)
[2024-10-15 15:52] LABS: CK-MB VALUE MASS < 1.0 NG/ML (<3.6)
[2024-10-15 15:53] LABS: CPK CREATINE PHOSPHOKINASE 78 U/L (34-145); MB/CK RELATIVE INDEX 1.28 (< OR =4)
[2024-10-15 16:00] VITALS: TEMP 98.1
[2024-10-15] MEDS: diphenhydrAMINE 50MG/ML VIAL IV STA (16:26)
[2024-10-15] MEDS: predniSONE 20 MG TAB PO ONE (16:27)
[2024-10-15 17:00] VITALS: O2SAT 97
[2024-10-15 17:01] VITALS: BP 150/72
[2024-10-15] MEDS ORDERED: PRED20TA PO (17:01)
[2024-10-15] MEDS ORDERED: MUPI2OI TOP (17:05)
== END 2024-10-15 17:31 | disposition home or self-care (01) ==
LOC: M ED 11:15
DX: L66.2 Folliculitis decalvans (principal); R73.03 Prediabetes; I10 Essential (primary) hypertension; K21.9 Gastro-esophageal reflux disease without esophagitis; E03.9 Hypothyroidism, unspecified; H40.9 Unspecified glaucoma; Z79.899 Other long term (current) drug therapy; Z88.0 Allergy status to penicillin; Z88.1 Allergy status to other antibiotic agents; Z88.8 Allergy status to other drugs, medicaments and biological substances
CPT/HCPCS: 71045; 80048; 80076; 82550; 82553; 83690; 84484; 85025; 93005; 96374; 99284; J1200; J7512

== ENCOUNTER → 2025-02-21 | Outpatient (CLI) | payer MEDICARE, OTHER ==
[~2025-02-21] MED LIST changes: +MUPI2OI TOP; +PRED20TA PO; +TELM1TAB35
[2025-02-21 10:10] LABS: BASO # 0.1 10^3/uL (0.0-0.2); EOS # 0.3 10^3/uL (0.0-0.5); EOS % 3.7 % (0.0-3.0); HEMATOCRIT 39.3 % (36.0-47.0); HEMOGLOBIN 12.9 g/dl (12.0-15.5); LYMPH # 1.7 10^3/uL (1.5-5.0); MEAN CORPUSCULAR HEMOGLOBIN 29.8 pg (27.0-33.0); MEAN CORPUSCULAR HGB CONC 32.8 g/dl (32.0-36.5); MEAN CORPUSCULAR VOLUME 90.8 fl (80.0-96.0); MONO # 0.6 10^3/uL (0.0-0.8); MONO % 9.4 % (2.0-8.0); NEUTROPHILS # 4.1 10^3/uL (1.5-8.5); NEUTROPHILS % 60.6 % (36.0-66.0); PLATELET COUNT, AUTOMATED 195 10^3/uL (150-450); RED BLOOD COUNT 4.33 10^6/uL (4.00-5.40); WHITE BLOOD COUNT 6.7 10^3/uL (4.0-10.0)
[2025-02-21 10:17] LABS: ALKALINE PHOSPHATASE 68 U/L (35-104); ALT/SGPT 17 U/L (7.0-40); AST/SGOT 11 U/L (<34); BILIRUBIN,TOTAL 1.4 MG/DL (0.3-1.2); BLOOD UREA NITROGEN 21 MG/DL (9-23); CALCIUM LEVEL 9.7 MG/DL (8.3-10.6); CARBON DIOXIDE LEVEL 29 MMOL/L (20-31); CHLORIDE LEVEL 106 MMOL/L (98-107); CREATININE FOR GFR 0.96 MG/DL (0.55-1.30); GLOMERULAR FILTRATION RATE > 60.0 (>39); GLUCOSE, FASTING 133 MG/DL (74-106); SODIUM LEVEL 142 MMOL/L (136-145); TOTAL PROTEIN 6.8 G/DL (5.7-8.2)
[2025-02-21 10:19] LABS: FERRITIN 55.8 NG/ML (7.3-270.7); FREE T4 1.74 NG/DL (0.89-1.76)
[2025-02-21 10:20] LABS: THYROID STIMULATING HORMONE 4.449 uIU/ML (0.55-4.78)
[2025-02-21 10:27] LABS: HEMOGLOBIN A1c 5.9 % (4.0-6.0)
== END ==
LOC: M PLALAB 08:31
PROVIDERS: ATTEND Family Medicine
DX: D50.9 Iron deficiency anemia, unspecified (principal); E78.2 Mixed hyperlipidemia; E03.9 Hypothyroidism, unspecified; E11.8 Type 2 diabetes mellitus with unspecified complications; K74.00 Hepatic fibrosis, unspecified

== ENCOUNTER → 2025-07-31 | Outpatient (CLI) | payer MEDICARE, OTHER ==
[2025-07-31 11:10] LABS: BASO # 0.1 10^3/uL (0.0-0.2); BASO % 1.1 % (0.0-1.0); EOS # 0.3 10^3/uL (0.0-0.5); EOS % 5.1 % (0.0-3.0); LYMPH # 1.5 10^3/uL (1.5-5.0); LYMPH % 24.2 % (24.0-44.0); MONO # 0.7 10^3/uL (0.0-0.8); MONO % 10.6 % (2.0-8.0); NEUTROPHILS # 3.6 10^3/uL (1.5-8.5); NEUTROPHILS % 58.5 % (36.0-66.0); PLATELET COUNT, AUTOMATED 182 10^3/uL (150-450)
[2025-07-31 11:17] LABS: ALT/SGPT 15 U/L (7.0-40); AST/SGOT 14 U/L (<34); CALCIUM LEVEL 9.5 MG/DL (8.3-10.6); CARBON DIOXIDE LEVEL 25 MMOL/L (20-31); CHLORIDE LEVEL 107 MMOL/L (98-107); CREATININE FOR GFR 0.90 MG/DL (0.55-1.30); GLOMERULAR FILTRATION RATE 65.8 (>39); POTASSIUM SERUM 4.7 MMOL/L (3.5-5.1); SODIUM LEVEL 142 MMOL/L (136-145)
[2025-07-31 11:19] LABS: FREE T4 2.20 NG/DL (0.89-1.76)
[2025-07-31 11:21] LABS: ESTIMATED AVERAGE GLUCOSE 143.0 MG/DL (60-110)
[2025-07-31 11:25] LABS: THYROID PEROXIDASE ANTIBODY < 28.0 U/ML (<60.0)
== END ==
LOC: M PLALAB 08:03
PROVIDERS: ATTEND Family Medicine
DX: D50.9 Iron deficiency anemia, unspecified (principal); E78.2 Mixed hyperlipidemia; E03.9 Hypothyroidism, unspecified; E11.8 Type 2 diabetes mellitus with unspecified complications; E80.4 Gilbert syndrome; Z79.84 Long term (current) use of oral hypoglycemic drugs; Z79.899 Other long term (current) drug therapy